=== PATIENT | female | born 1975 | race Two or more races ===

== ENCOUNTER 2017-01-06 17:50 | Emergency (ER) | payer OTHER ==
[~2017-01-06] VITALS: Ht 162.6 cm; Wt 81.6 kg
[2017-01-06 18:07] VITALS: BP 133/84
[2017-01-06] MEDS ORDERED: Betadine 4oz Bottle TOPIC ONE (18:19)
--- NOTE | 2017-01-06 18:40 | Emergency Room Report ---
History of Present Illness General Chief Complaint: Animal Bite Source: Patient Present Illness HPI The patient is a 41-year-old female presenting for a dog bite to the right hand which occurred today. He is described as a 5/10 dull ache and does not radiate. Worse with movement. The patient states that she had a tetanus shot approximately one year prior. She denies any numbness or tingling. She denies any other symptoms including nausea, vomiting, fever, chills Allergies: Coded Allergies: No Known Allergies (Unverified , 01/06/17) Patient History Past Medical History: see triage record Pertinent Family History: none Last Menstrual Period: 12/04/16 Now: No Reviewed Nursing Documentation: PMH: Agreed, PSxH: Agreed Nursing Documentation-PMH Past Medical History: No Stated History Review of Systems All Other Systems: negative except mentioned in HPI Physical Exam Vital Signs Date Time Temp Pulse Resp B/P Pulse Ox O2 Delivery O2 Flow Rate FiO2 01/06/17 17:56 98.2 62 14 133/84 99 Room Air Sp02 EP Interpretation: reviewed, normal General Appearance: no apparent distress, alert, GCS 15, non-toxic Head: normocephalic, atraumatic Eyes: bilateral eye PERRL, bilateral eye normal inspection ENT: hearing grossly normal, normal pharynx, no angioedema, normal voice Musculoskeletal: back normal, gait/station normal, normal range of motion, tender - TTp along the R 4th digit Neurologic: alert, oriented x3, responsive, motor strength/tone normal, sensory intact, speech normal Psychiatric: judgement/insight normal, memory normal, mood/affect normal, no suicidal/homicidal ideation Skin: laceration - There are 3 < 1cm puncture wounds of the dorsal surface of the 4th digit. Minimal bleeding Procedures Laceration/Wound Repair Laceration/Wound Repair : Consent: Verbal Wound Location: upper extremity Wound's Depth, Shape: superficial, irregular Wound Length (cm): 1 Wound Explored: clean Irrigated w/ Saline (ccs): 500 Betadine Prep?: Yes Volume Anesthetic (ccs): 0 Wound Debrided: minimal Wound Repaired With: Steri-strips - 2 Layer Closure?: No Sterile Dressing Applied?: Yes Splint Applied?: No Sling Applied?: No Patient Tolerated: Well Complications: None Medical Decision Making PA Attestation Dr. Rey is my supervising physician. Patient management was discussed with my supervising physician Diagnostic Impression: Primary Impression: Dog bite Qualified Codes: W54.0XXA - Bitten by dog, initial encounter ER Course The patient is a 41-year-old female presenting for a dog bite to the right hand Ddx considered include but not limited to fracture, tendon/ligament injury, avulsion, nerve damage PE: vitals WNL. NAD There are 3 puncture wounds to the right fourth digit consistent with dog bite. Minimal bleeding. < 1cm each. Full active range of motion of the digit. The lacerations are copiously irrigated with pressurized NS. Cleaned with betadine. Steri-Strips were applied for wound closure and bacitracin is applied as well. The patient is given a dose of Augmentin in the emergency department and be discharged home with Augmentin and motrin. ER precautions given Last Vital Signs Date Time Temp Pulse Resp B/P Pulse Ox O2 Delivery O2 Flow Rate FiO2 01/06/17 18:07 98.2 14 133/84 99 Room Air 01/06/17 17:56 62 Status: improved Disposition: HOME, SELF-CARE Condition: Improved Scripts Ibuprofen* (MOTRIN*) 600 Mg Tablet 600 MG ORAL Q8H Y for For Pain, #30 TAB 0 Refills Prov: GERTRUDIS CAMARILLO 01/06/17 Amoxicillin/Potassium Clav 875-125* (AUGMENTIN 875-125 TABLET*) 1 Each Tablet 1 TAB ORAL TWICE A DAY, #10 TAB Prov: GERTRUDIS CAMARILLO 01/06/17 Referrals: NOT CHOSEN IPA/,REFERRING (PCP) GERTRUDIS CAMARILLO Jan 06, 2017 18:40
[2017-01-06] MEDS ORDERED: IBUPROFEN600 MG ORAL (18:43)
[2017-01-06] MEDS ORDERED: AUGMENTIN 875-1 EAC1 ORAL (18:43)
[2017-01-06] MEDS ORDERED: Augmentin 875mg Tab ORAL ONE (18:45)
[2017-01-06] MEDS ORDERED: Bacitracin Oint UD TOPIC ONE (18:45)
[2017-01-06 19:08] VITALS: BP 133/84
== END 2017-01-06 19:09 | disposition home or self-care (01) ==
LOC: EMR 18:09
DX: S61.451A Open bite of right hand, initial encounter (principal); W54.0XXA Bitten by dog, initial encounter; Y93.9 Activity, unspecified; Y92.9 Unspecified place or not applicable
CPT/HCPCS: A4246